=== PATIENT | male | born 1940 | race Caucasian/White ===

== ENCOUNTER 2017-04-25 08:07 | Outpatient (CLI) | payer MEDICARE, OTHER ==
[2017-04-25 13:45] LABS: BASOPHILS % (AUTO) 0.7 %; EOSINOPHILS # (AUTO) 0.3 10^3/uL (0.0-0.7); EOSINOPHILS % (AUTO) 5.3 %; HCT - HEMATOCRIT 38.5 % (42.0-52.0); LYMPHOCYTES # (AUTO) 1.6 10^3/uL (1.5-3.5); LYMPHOCYTES % (AUTO) 30.6 %; MEAN CORPUSCULAR HEMOGLOBIN 31.8 pg (27.0-31.0); MEAN CORPUSCULAR HGB CONC 33.7 g/dL (32.0-36.0); MEAN CORPUSCULAR VOLUME 94.3 fL (80.0-94.0); MEAN PLATELET VOLUME 10.3 fL (7.4-11.4); MONOCYTES # (AUTO) 0.6 10^3/uL (0.0-1.0); MONOCYTES % (AUTO) 12.1 %; NEUTROPHILS # (AUTO) 2.7 10^3/uL (1.5-6.6); NEUTROPHILS % (AUTO) 51.3 %; RED BLOOD COUNT 4.08 10^6/uL (4.70-6.10); RED CELL DISTRIBUTION WIDTH 14.7 % (12.0-15.0); UNCORRECTED WHITE BLOOD COUNT 5.2 x10^3/uL; WHITE BLOOD COUNT 5.2 x10^3/uL (4.8-10.8)
[2017-04-25 14:07] LABS: ALBUMIN/GLOBULIN RATIO 1.6 (1.0-2.2); BILIRUBIN,TOTAL 0.8 mg/dL (0.2-1.0); BUN - BLOOD UREA NITROGEN 13 mg/dL (6-20); CALCIUM 8.8 mg/dL (8.5-10.3); CARBON DIOXIDE - CO2 29 mmol/L (21-32); CHLORIDE 104 mmol/L (101-111); CHOL/HDL RATIO 3.3 (<5.0); CHOLESTEROL 160 mg/dL; CREATININE 0.9 mg/dL (0.6-1.2); GFR - MDRD 81 (>89); GLUCOSE 79 mg/dL (70-100); HDL CHOLESTEROL 49 mg/dL; LDL/HDL RATIO 1.9 (<3.6); SODIUM 137 mmol/L (135-145); TOTAL PROTEIN 6.5 g/dL (6.7-8.2); TRIGLYCERIDES 81 mg/dL; VLDL CHOLESTEROL 16 mg/dL
== END 2017-04-25 08:08 | disposition home or self-care (01) ==
LOC: LAB.WCP 08:07
PROVIDERS: ATTEND Family Medicine
DX: E78.5 Hyperlipidemia, unspecified (principal); E03.9 Hypothyroidism, unspecified; R53.83 Other fatigue; Z12.5 Encounter for screening for malignant neoplasm of prostate
CPT/HCPCS: 36415; 80053; 80061; 84443; 85025; G0103; 84153

== ENCOUNTER 2017-05-08 12:56 | Day surgery (SDC) | payer MEDICARE, OTHER ==
[2017-05-08] MEDS ORDERED: LACTATED RINGERS 1,000 ML IV ONE (13:40)
[2017-05-08] MEDS ORDERED: MIDAZOLAM 2 MG/2 ML VIAL IVP ONE (14:22)
[2017-05-08] MEDS ORDERED: fentaNYL 100 MCG/2 ML VIAL IVP ONE (14:22)
--- NOTE | 2017-05-08 15:42 | PROCEDURE REPORT ---
DATE OF PROCEDURE: PROCEDURE: Colonoscopy. ENDOSCOPIST: Gege Meneses MD. INDICATION: Return visit, history of polyps. PREMEDICATION: Fentanyl 100 mcg, Versed 5 mg IV titration. After informed consent was obtained, the patient was placed in the left lateral decubitus position. T he video colonoscope was placed in the rectum and slowly advanced to the cecum. On slow withdrawal, t he mucosa was carefully examined. The scope was removed. The patient tolerated the procedure well. Pr eparation was good. BLOOD LOSS: None. COMPLICATIONS: None. FINDINGS 1. Extensive pancolonic diverticulosis, but particularly so in the left colon. 2. Otherwise negative colonoscopy to cecum. The patient will not need followup colonoscopy due to age and absence of adenomas. JOB #: [id number] EXT JOB #:[id number]
[2017-05-08 15:48] VITALS: BP 108/56
== END 2017-05-08 12:57 | disposition home or self-care (01) ==
LOC: SDS 12:56
PROVIDERS: ATTEND Internal Medicine Gastroenterology
PROC: 0DJD8ZZ Inspection of Lower Intestinal Tract, Via Natural or Artificial Opening Endoscopic (ICD-10-PCS; principal; 2017-05-08 14:00)
DX: Z86.010 Personal history of colon polyps (principal); K57.30 Diverticulosis of large intestine without perforation or abscess without bleeding; E03.9 Hypothyroidism, unspecified; E78.00 Pure hypercholesterolemia, unspecified; I73.9 Peripheral vascular disease, unspecified
CPT/HCPCS: 45378; J7120

== ENCOUNTER 2018-04-30 08:26 | Outpatient (CLI) | payer MEDICARE, OTHER ==
[2018-04-30 12:27] LABS: BASOPHILS # (AUTO) 0.1 10^3/uL (0.0-0.1); BASOPHILS % (AUTO) 0.9 %; EOSINOPHILS # (AUTO) 0.3 10^3/uL (0.0-0.7); EOSINOPHILS % (AUTO) 4.1 %; HGB - HEMOGLOBIN 13.8 g/dL (14.0-18.0); LYMPHOCYTES % (AUTO) 30.6 %; MEAN CORPUSCULAR HGB CONC 33.4 g/dL (32.0-36.0); MEAN PLATELET VOLUME 10.6 fL (7.4-11.4); MONOCYTES # (AUTO) 0.6 10^3/uL (0.0-1.0); MONOCYTES % (AUTO) 10.1 %; NEUTROPHILS # (AUTO) 3.5 10^3/uL (1.5-6.6); NEUTROPHILS % (AUTO) 54.3 %; PLT - PLATELET COUNT 232 10^3/uL (130-450); RED BLOOD COUNT 4.31 10^6/uL (4.70-6.10); RED CELL DISTRIBUTION WIDTH 14.2 % (12.0-15.0); WHITE BLOOD COUNT 6.4 x10^3/uL (4.8-10.8)
[2018-04-30 14:12] LABS: ALBUMIN 3.9 g/dL (3.2-5.5); ALBUMIN/GLOBULIN RATIO 1.3 (1.0-2.2); ALKALINE PHOSPHATASE 59 IU/L (42-121); ALT ALANINE AMINOTRANSFERASE 12 IU/L (10-60); AST ASPARTATE AMINOTRANSFERASE 18 IU/L (10-42); BILIRUBIN,TOTAL 0.6 mg/dL (0.2-1.0); BUN - BLOOD UREA NITROGEN 8 mg/dL (6-20); CALCIUM 8.8 mg/dL (8.5-10.3); CARBON DIOXIDE - CO2 29 mmol/L (21-32); CHLORIDE 103 mmol/L (101-111); CHOL/HDL RATIO 2.7 (<5.0); CHOLESTEROL 135 mg/dL; CREATININE 0.7 mg/dL (0.6-1.2); GFR - MDRD 109 (>89); GLUCOSE 78 mg/dL (70-100); HDL CHOLESTEROL 50 mg/dL; LDL CHOLESTEROL,CALCULATED 71 mg/dL; LDL/HDL RATIO 1.4 (<3.6); SODIUM 138 mmol/L (135-145); TOTAL PROTEIN 6.8 g/dL (6.7-8.2); VLDL CHOLESTEROL 14 mg/dL
== END 2018-04-30 08:27 ==
LOC: LAB.WCP 08:26
PROVIDERS: ATTEND Family Medicine
DX: E78.5 Hyperlipidemia, unspecified (principal); E03.9 Hypothyroidism, unspecified
CPT/HCPCS: 36415; 80053; 80061; 83721; 84443; 85025

== ENCOUNTER 2019-02-11 08:20 | Outpatient (CLI) | payer MEDICARE, OTHER ==
[2019-02-11 13:00] LABS: BASOPHILS # (AUTO) 0.1 10^3/uL (0.0-0.1); BASOPHILS % (AUTO) 0.9 %; EOSINOPHILS # (AUTO) 0.2 10^3/uL (0.0-0.7); EOSINOPHILS % (AUTO) 3.6 %; HGB - HEMOGLOBIN 13.5 g/dL (14.0-18.0); LYMPHOCYTES # (AUTO) 1.7 10^3/uL (1.5-3.5); LYMPHOCYTES % (AUTO) 28.3 %; MEAN CORPUSCULAR HEMOGLOBIN 31.5 pg (27.0-31.0); MEAN CORPUSCULAR HGB CONC 33.7 g/dL (32.0-36.0); MEAN CORPUSCULAR VOLUME 93.4 fL (80.0-94.0); MEAN PLATELET VOLUME 10.2 fL (7.4-11.4); MONOCYTES # (AUTO) 0.8 10^3/uL (0.0-1.0); MONOCYTES % (AUTO) 13.2 %; NEUTROPHILS # (AUTO) 3.1 10^3/uL (1.5-6.6); PLT - PLATELET COUNT 241 10^3/uL (130-450); RED BLOOD COUNT 4.28 10^6/uL (4.70-6.10); RED CELL DISTRIBUTION WIDTH 14.8 % (12.0-15.0); WHITE BLOOD COUNT 5.8 x10^3/uL (4.8-10.8)
[2019-02-11 13:38] LABS: ALBUMIN/GLOBULIN RATIO 1.4 (1.0-2.2); ALKALINE PHOSPHATASE 58 IU/L (42-121); ALT ALANINE AMINOTRANSFERASE 11 IU/L (10-60); AST ASPARTATE AMINOTRANSFERASE 19 IU/L (10-42); BILIRUBIN,TOTAL 0.6 mg/dL (0.2-1.0); BUN - BLOOD UREA NITROGEN 9 mg/dL (6-20); CALCIUM 8.9 mg/dL (8.5-10.3); CARBON DIOXIDE - CO2 28 mmol/L (21-32); CHLORIDE 102 mmol/L (101-111); CHOL/HDL RATIO 3.2 (<5.0); CHOLESTEROL 156 mg/dL; CREATININE 0.9 mg/dL (0.6-1.2); GFR - MDRD 81 (>89); GLUCOSE 87 mg/dL (70-100); HDL CHOLESTEROL 49 mg/dL; LDL CHOLESTEROL,CALCULATED 95 mg/dL; LDL/HDL RATIO 1.9 (<3.6); SODIUM 136 mmol/L (135-145); TOTAL PROTEIN 6.8 g/dL (6.7-8.2); VLDL CHOLESTEROL 12 mg/dL
== END 2019-02-11 08:21 | disposition home or self-care (01) ==
LOC: LAB.WCP 08:20
PROVIDERS: ATTEND Family Medicine
DX: E78.5 Hyperlipidemia, unspecified (principal); E03.9 Hypothyroidism, unspecified
CPT/HCPCS: 36415; 80053; 80061; 83721; 84443; 85025

== ENCOUNTER 2019-05-22 08:00 | Outpatient (CLI) | payer MEDICARE, OTHER ==
[2019-05-22 18:41] LABS: ALBUMIN 4.2 g/dL (3.2-5.5); ALBUMIN/GLOBULIN RATIO 1.4 (1.0-2.2); BILIRUBIN,TOTAL 0.6 mg/dL (0.2-1.0); CALCIUM 8.9 mg/dL (8.5-10.3); CREATININE 0.7 mg/dL (0.6-1.2); TOTAL PROTEIN 7.3 g/dL (6.7-8.2)
== END 2019-05-22 23:59 | disposition home or self-care (01) ==
LOC: LAB.N 08:00
PROVIDERS: ATTEND Family Medicine
DX: I10 Essential (primary) hypertension (principal)
CPT/HCPCS: 36415; 80053

== ENCOUNTER 2019-06-23 08:00 | Outpatient (CLI) | payer MEDICARE, OTHER ==
[2019-06-23 19:24] LABS: MAGNESIUM 2.8 mg/dL (1.7-2.8); PHOSPHORUS 2.7 mg/dL (2.5-4.6)
== END 2019-06-23 23:59 | disposition home or self-care (01) ==
LOC: LAB.N 08:00
PROVIDERS: ATTEND Family Medicine
DX: R25.2 Cramp and spasm (principal); D64.9 Anemia, unspecified
CPT/HCPCS: 36415; 81599; 83735; 84100; 84425; 86255; 86340

== ENCOUNTER 2019-06-30 08:00 | Outpatient (CLI) | payer MEDICARE, OTHER ==
[2019-06-30 19:18] LABS: THYROID STIMULATING HORMONE 1.82 uIU/mL (0.34-5.60)
[2019-06-30 19:20] LABS: FREE T4 (FREE THYROXINE) 1.12 ng/dL (0.58-1.64)
== END 2019-06-30 23:59 | disposition home or self-care (01) ==
LOC: LAB.N 08:00
PROVIDERS: ATTEND Family Medicine
DX: E03.9 Hypothyroidism, unspecified (principal)
CPT/HCPCS: 36415; 84439; 84443; 84481; 86800

== ENCOUNTER 2019-09-25 13:53 | Outpatient (CLI) | payer MEDICARE, OTHER ==
[2019-09-25 19:46] LABS: THYROID STIMULATING HORMONE 0.95 uIU/mL (0.34-5.60)
== END 2019-09-25 23:59 | disposition home or self-care (01) ==
LOC: LAB.N 13:53
PROVIDERS: ATTEND Family Medicine
DX: E07.9 Disorder of thyroid, unspecified (principal)
CPT/HCPCS: 36415; 84439; 84443; 84481; 86800

== ENCOUNTER 2019-12-21 11:22 | Outpatient (CLI) | payer MEDICARE, OTHER | END 2019-12-21 23:59 | disposition home or self-care (01) | LOC: LAB.N 11:22 | PROVIDERS: ATTEND Family Medicine | DX: E53.8 Deficiency of other specified B group vitamins (principal) | CPT/HCPCS: 36415; 82607 ==

== ENCOUNTER 2020-03-01 14:43 | Outpatient (CLI) | payer MEDICARE, OTHER ==
--- NOTE | 2020-03-03 10:42 | Ultrasound Report ---
Reason: PERIPHERAL VASCULAR DISEASE, UNSPECIFIED Procedure Date: 03/01/2020 Accession Number: [id number] / [id number] Procedure: US - Duplex Lwr Ext Arterial Bilat CPT Code: Final Report FULL RESULT: EXAM: BILATERAL LOWER EXTREMITY ARTERIAL DOPPLER ULTRASOUND EXAM DATE: 03/01/2020 03:50 PM. CLINICAL HISTORY: Unspecified peripheral vascular disease. History of hyperlipidemia and coronary artery disease. COMPARISON: Lower extremity arterial duplex from 09/15/2012. TECHNIQUE: Real-time sonographic vascular imaging was performed by the [employer] and service director, utilizing color-flow, Doppler flow, and spectral analysis. Multiple practice representative static images were saved for review. FINDINGS: There appear to be areas of mild atherosclerotic plaque in the left popliteal artery and bilateral calf arteries. Right Leg: EMBOSSING PRESS OPERATOR: PSV 70.1 cm/sec. Biphasic waveform. PSFA: PSV 54.7 cm/sec. Biphasic waveform. MSFA: PSV 57.0 cm/sec. Biphasic waveform. DSFA: PSV 49.7 cm/sec. Triphasic waveform. PFA: PSV 43.1 cm/sec. Biphasic waveform. POP: PSV 43.8 cm/sec. Biphasic waveform. EUGENIA: PSV 58.3 cm/sec. Biphasic waveform. WAXER TENDER: PSV 21.2 cm/sec. Biphasic waveform. PER: PSV 52.6 cm/sec. Biphasic waveform. DPA: PSV 19.6 cm/sec. Biphasic waveform. Left Leg: EMBOSSING PRESS OPERATOR: PSV 80.7 cm/sec. Triphasic waveform. PSFA: PSV 62.0 cm/sec. Biphasic waveform. MSFA: PSV 60.6 cm/sec. Triphasic waveform. DSFA: PSV 55.1 cm/sec. Biphasic waveform. POP: PSV 46.6 cm/sec. Biphasic waveform. PFA: PSV 43.9 cm/sec. Biphasic waveform. EUGENIA: PSV 53.8 cm/sec. Biphasic waveform. WAXER TENDER: PSV 51.4 cm/sec. Biphasic waveform. PER: PSV 55.8 cm/sec. Biphasic waveform. DPA: PSV 53.6 cm/sec. Biphasic waveform. IMPRESSION: No Doppler evidence of significant (greater than 50%) arterial stenosis in either lower extremity. RADIA
== END 2020-03-01 14:44 | disposition home or self-care (01) ==
LOC: DI 14:43
PROVIDERS: ATTEND Podiatrist
DX: I70.203 Unspecified atherosclerosis of native arteries of extremities, bilateral legs (principal)
CPT/HCPCS: 93925

== ENCOUNTER 2020-04-29 10:50 | Outpatient (CLI) | payer MEDICARE, OTHER ==
--- NOTE | 2020-04-29 14:07 | Ultrasound Report ---
PROCEDURE: Abdomen Complete INDICATIONS: ABD DISCOMFORT TECHNIQUE: Real-time scanning was performed of the abdominal and retroperitoneal organs, with image documentatio n. COMPARISON: None. FINDINGS: Liver: Liver are visualized is normal in size and homogeneous in echotexture. The left lobe of the l iver is predominantly obscured by bowel gas. Gallbladder: Gallbladder is sonographically normal. No gallstones. No gallbladder wall thickening wit h gallbladder wall measuring 1.6 mm. No pericholecystic fluid. No sonographic Yang's sign. Biliary ducts: Intrahepatic bile ducts are non-dilated. Extrahepatic bile duct caliber measures 5.0 mm. Normal is 6-7 mm or less in diameter, or 10 mm or less post-cholecystectomy. Pancreas: Obscured by bowel gas and cannot be evaluated. Spleen: Spleen is normal in size and homogeneous in echotexture. Spleen is suboptimally visualized d ue to bowel gas. Kidneys: Kidneys are normal in size and echotexture. Right kidney measures 9.5 cm long; left kidney measures 11.4 cm long. No hydronephrosis or nephrolithiasis. No solid masses. 2.3 x 1.5 x 1.8 cm r ight renal cysts. Aorta: Visualized aorta is normal in caliber at less than 3 cm. Iliacs: Proximal common iliac arteries are normal in caliber at less than 2.5 cm. IVC: Intrahepatic inferior vena cava is patent. Miscellaneous: No free abdominal fluid. IMPRESSION: 1. Study limited by excessive bowel gas. 2. No sonographic evidence of cholelithiasis or cholecystitis. 3. Right renal cyst. Reviewed by: Lexus Ho MD, PhD on 04/29/2020 2:05 PM PDT Approved by: Lexus Ho MD, PhD on 04/29/2020 2:05 PM PDT Station ID: [id number]
== END 2020-04-29 10:51 | disposition home or self-care (01) ==
LOC: DI 10:50
PROVIDERS: ATTEND Family Medicine
DX: R10.9 Unspecified abdominal pain (principal); N28.1 Cyst of kidney, acquired
CPT/HCPCS: 76700

== ENCOUNTER 2020-10-27 13:34 | Outpatient (CLI) | payer MEDICARE, OTHER ==
[2020-10-27 18:48] LABS: BASOPHILS % (AUTO) 0.6 %; EOSINOPHILS # (AUTO) 0.2 10^3/uL (0.0-0.7); EOSINOPHILS % (AUTO) 2.4 %; HGB - HEMOGLOBIN 13.8 g/dL (14.0-18.0); LYMPHOCYTES % (AUTO) 29.2 %; MEAN CORPUSCULAR HEMOGLOBIN 32.3 pg (27.0-31.0); MEAN CORPUSCULAR HGB CONC 32.6 g/dL (32.0-36.0); MEAN CORPUSCULAR VOLUME 99.1 fL (80.0-94.0); MEAN PLATELET VOLUME 12.5 fL (7.4-11.4); MONOCYTES # (AUTO) 0.8 10^3/uL (0.0-1.0); MONOCYTES % (AUTO) 11.4 %; NEUTROPHILS # (AUTO) 3.8 10^3/uL (1.5-6.6); NEUTROPHILS % (AUTO) 56.3 %; PLT - PLATELET COUNT 241 10^3/uL (130-450); RED BLOOD COUNT 4.27 10^6/uL (4.70-6.10); RED CELL DISTRIBUTION WIDTH 14.5 % (12.0-15.0); WHITE BLOOD COUNT 6.8 x10^3/uL (4.8-10.8)
[2020-10-27 19:02] LABS: ALBUMIN 4.1 g/dL (3.2-5.5); ALBUMIN/GLOBULIN RATIO 1.4 (1.0-2.2); ALKALINE PHOSPHATASE 50 IU/L (42-121); ALT ALANINE AMINOTRANSFERASE 13 IU/L (10-60); AST ASPARTATE AMINOTRANSFERASE 20 IU/L (10-42); BILIRUBIN,TOTAL 0.7 mg/dL (0.2-1.0); BUN - BLOOD UREA NITROGEN 13 mg/dL (6-20); CALCIUM 9.3 mg/dL (8.5-10.3); CARBON DIOXIDE - CO2 29 mmol/L (21-32); CHLORIDE 101 mmol/L (101-111); CHOL/HDL RATIO 2.9 (<5.0); CHOLESTEROL 153 mg/dL; CREATININE 0.8 mg/dL (0.6-1.2); GLUCOSE 79 mg/dL (70-100); HDL CHOLESTEROL 52 mg/dL; LDL CHOLESTEROL,CALCULATED 85 mg/dL; LDL/HDL RATIO 1.6 (<3.6); MAGNESIUM 2.6 mg/dL (1.7-2.8); VLDL CHOLESTEROL 16 mg/dL
== END 2020-10-27 23:59 ==
LOC: LAB.WCP 13:34
PROVIDERS: ATTEND Nurse Practitioner
DX: I73.9 Peripheral vascular disease, unspecified (principal); E07.9 Disorder of thyroid, unspecified; I10 Essential (primary) hypertension; E53.8 Deficiency of other specified B group vitamins; E61.2 Magnesium deficiency; D64.9 Anemia, unspecified; E78.5 Hyperlipidemia, unspecified
CPT/HCPCS: 36415; 80053; 80061; 82607; 82746; 83721; 83735; 84443; 85025

== ENCOUNTER 2021-02-03 08:00 | Outpatient (CLI) | payer MEDICARE, OTHER | END 2021-02-03 23:59 | disposition home or self-care (01) | LOC: LAB.WCP 08:00 | PROVIDERS: ATTEND Internal Medicine | DX: G62.9 Polyneuropathy, unspecified (principal) | CPT/HCPCS: 36415; 81599; 84155; 84165; 86334 ==

== ENCOUNTER 2021-11-14 08:16 | Outpatient (CLI) | payer MEDICARE, OTHER ==
[2021-11-14 11:37] LABS: BASOPHILS % (AUTO) 0.4 %; EOSINOPHILS # (AUTO) 0.2 10^3/uL (0.0-0.7); EOSINOPHILS % (AUTO) 3.1 %; HCT - HEMATOCRIT 40.4 % (42.0-52.0); HGB - HEMOGLOBIN 13.2 g/dL (14.0-18.0); LYMPHOCYTES # (AUTO) 1.3 10^3/uL (1.5-3.5); LYMPHOCYTES % (AUTO) 25.7 %; MEAN CORPUSCULAR HGB CONC 32.7 g/dL (32.0-36.0); MEAN CORPUSCULAR VOLUME 98.1 fL (80.0-94.0); MEAN PLATELET VOLUME 11.8 fL (7.4-11.4); MONOCYTES # (AUTO) 0.6 10^3/uL (0.0-1.0); NEUTROPHILS % (AUTO) 58.6 %; PLT - PLATELET COUNT 257 10^3/uL (130-450); RED BLOOD COUNT 4.12 10^6/uL (4.70-6.10); RED CELL DISTRIBUTION WIDTH 14.6 % (12.0-15.0); WHITE BLOOD COUNT 5.2 x10^3/uL (4.8-10.8)
[2021-11-14 13:22] LABS: THYROID STIMULATING HORMONE 1.73 uIU/mL (0.34-5.60)
[2021-11-14 13:27] LABS: ALBUMIN/GLOBULIN RATIO 1.3 (1.0-2.2); ALKALINE PHOSPHATASE 59 IU/L (42-121); ALT ALANINE AMINOTRANSFERASE 11 IU/L (10-60); AST ASPARTATE AMINOTRANSFERASE 17 IU/L (10-42); BILIRUBIN,TOTAL 0.8 mg/dL (0.2-1.0); BUN - BLOOD UREA NITROGEN 10 mg/dL (6-20); CALCIUM 8.9 mg/dL (8.5-10.3); CARBON DIOXIDE - CO2 28 mmol/L (21-32); CHLORIDE 98 mmol/L (101-111); CHOL/HDL RATIO 2.7 (<5.0); CHOLESTEROL 148 mg/dL; CREATININE 0.9 mg/dL (0.6-1.2); GFR - MDRD 81 (>89); GLUCOSE 84 mg/dL (70-100); HDL CHOLESTEROL 54 mg/dL; LDL CHOLESTEROL,CALCULATED 81 mg/dL; LDL/HDL RATIO 1.5 (<3.6); SODIUM 135 mmol/L (135-145); TOTAL PROTEIN 7.1 g/dL (6.7-8.2); TRIGLYCERIDES 64 mg/dL; VLDL CHOLESTEROL 13 mg/dL
== END 2021-11-14 08:17 | disposition home or self-care (01) ==
LOC: LAB.N 08:16
PROVIDERS: ATTEND Internal Medicine
DX: I10 Essential (primary) hypertension (principal); E53.8 Deficiency of other specified B group vitamins; E03.9 Hypothyroidism, unspecified; D47.2 Monoclonal gammopathy
CPT/HCPCS: 36415; 80053; 80061; 81599; 82607; 83721; 84155; 84165; 84443; 85025; 86334

== ENCOUNTER 2022-02-02 07:20 | Outpatient (CLI) | payer MEDICARE, OTHER | END 2022-02-02 07:21 | disposition home or self-care (01) | LOC: LAB.N 07:20 | PROVIDERS: ATTEND Internal Medicine | DX: Z53.9 Procedure and treatment not carried out, unspecified reason (principal) ==

== ENCOUNTER 2022-02-05 13:44 | Outpatient (CLI) | payer MEDICARE, OTHER ==
[2022-02-05 17:56] LABS: BASOPHILS % (AUTO) 0.4 %; EOSINOPHILS # (AUTO) 0.2 10^3/uL (0.0-0.7); EOSINOPHILS % (AUTO) 2.7 %; HCT - HEMATOCRIT 40.9 % (42.0-52.0); HGB - HEMOGLOBIN 13.3 g/dL (14.0-18.0); LYMPHOCYTES # (AUTO) 1.3 10^3/uL (1.5-3.5); MEAN CORPUSCULAR HEMOGLOBIN 31.5 pg (27.0-31.0); MEAN CORPUSCULAR HGB CONC 32.5 g/dL (32.0-36.0); MEAN CORPUSCULAR VOLUME 96.9 fL (80.0-94.0); MEAN PLATELET VOLUME 12.6 fL (7.4-11.4); MONOCYTES # (AUTO) 0.6 10^3/uL (0.0-1.0); MONOCYTES % (AUTO) 11.5 %; NEUTROPHILS # (AUTO) 3.4 10^3/uL (1.5-6.6); PLT - PLATELET COUNT 229 10^3/uL (130-450); RED BLOOD COUNT 4.22 10^6/uL (4.70-6.10); RED CELL DISTRIBUTION WIDTH 14.7 % (12.0-15.0); WHITE BLOOD COUNT 5.5 x10^3/uL (4.8-10.8)
[2022-02-05 18:09] LABS: CALCIUM 9.3 mg/dL (8.5-10.3); CREATININE 0.8 mg/dL (0.6-1.2); POTASSIUM 4.2 mmol/L (3.5-5.0)
[2022-02-05 18:23] LABS: THYROID STIMULATING HORMONE 1.75 uIU/mL (0.34-5.60)
== END 2022-02-05 13:45 | disposition home or self-care (01) ==
LOC: LAB.N 13:44
PROVIDERS: ATTEND Internal Medicine
DX: E53.8 Deficiency of other specified B group vitamins (principal); E03.9 Hypothyroidism, unspecified; I10 Essential (primary) hypertension
CPT/HCPCS: 36415; 80048; 82607; 84443; 85025

== ENCOUNTER 2022-02-13 10:17 | Outpatient (CLI) | payer MEDICARE, OTHER ==
--- NOTE | 2022-02-13 14:38 | XRAY Report ---
PROCEDURE: Abdomen 1 View X-Ray INDICATIONS: IRRITABLE BOWEL SYNDROME W/CONSTIPATION TECHNIQUE: One view of the abdomen acquired. COMPARISON: Plain films dated 07/04/2018 FINDINGS: Surgical changes and devices: None. Bowel: There is moderate stool within the left colon. Bowel gas pattern is otherwise normal. Soft tissues: No suspicious abdominal calcifications. Visualized solid organ contours appear normal in size. Bones: No suspicious bony lesions. IMPRESSION: Left colonic stool. No evidence of small bowel obstruction. Reviewed by: Bryan Mckeon MD on 02/13/2022 2:37 PM PDT Approved by: Bryan Mckeon MD on 02/13/2022 2:37 PM PDT Station ID: [id number]
== END 2022-02-13 10:18 | disposition home or self-care (01) ==
LOC: DI 10:17
PROVIDERS: ATTEND Internal Medicine
DX: K58.1 Irritable bowel syndrome with constipation (principal)

== ENCOUNTER 2022-09-21 08:20 | Outpatient (CLI) | payer MEDICARE, OTHER ==
[2022-09-21 12:36] LABS: BASOPHILS # (AUTO) 0.1 10^3/uL (0.0-0.1); BASOPHILS % (AUTO) 0.9 %; EOSINOPHILS # (AUTO) 0.4 10^3/uL (0.0-0.7); EOSINOPHILS % (AUTO) 6.3 %; HCT - HEMATOCRIT 41.2 % (42.0-52.0); HGB - HEMOGLOBIN 13.1 g/dL (14.0-18.0); LYMPHOCYTES # (AUTO) 1.3 10^3/uL (1.5-3.5); MEAN CORPUSCULAR HEMOGLOBIN 31.4 pg (27.0-31.0); MEAN CORPUSCULAR HGB CONC 31.8 g/dL (32.0-36.0); MEAN CORPUSCULAR VOLUME 98.8 fL (80.0-94.0); MEAN PLATELET VOLUME 12.6 fL (7.4-11.4); MONOCYTES # (AUTO) 0.7 10^3/uL (0.0-1.0); MONOCYTES % (AUTO) 12.5 %; NEUTROPHILS # (AUTO) 3.3 10^3/uL (1.5-6.6); NEUTROPHILS % (AUTO) 57.1 %; PLT - PLATELET COUNT 234 10^3/uL (130-450); RED BLOOD COUNT 4.17 10^6/uL (4.70-6.10); RED CELL DISTRIBUTION WIDTH 14.8 % (12.0-15.0); WHITE BLOOD COUNT 5.7 x10^3/uL (4.8-10.8)
[2022-09-21 12:57] LABS: THYROID STIMULATING HORMONE 1.7 uIU/mL (0.34-5.60)
[2022-09-21 13:03] LABS: ALBUMIN 4.1 g/dL (3.2-5.5); ALBUMIN/GLOBULIN RATIO 1.5 (1.0-2.2); ALKALINE PHOSPHATASE 59 IU/L (42-121); ALT ALANINE AMINOTRANSFERASE 14 IU/L (10-60); AST ASPARTATE AMINOTRANSFERASE 18 IU/L (10-42); BILIRUBIN,TOTAL 0.6 mg/dL (0.2-1.0); BUN - BLOOD UREA NITROGEN 12 mg/dL (6-20); CHOLESTEROL 164 mg/dL; CREATININE 0.9 mg/dL (0.6-1.2); GFR - MDRD 80 (>89); HDL CHOLESTEROL 54 mg/dL; LDL CHOLESTEROL,CALCULATED 98 mg/dL; LDL/HDL RATIO 1.8 (<3.6); TOTAL PROTEIN 6.9 g/dL (6.7-8.2); TRIGLYCERIDES 60 mg/dL; VLDL CHOLESTEROL 12 mg/dL
[2022-09-21 13:24] LABS: CALCIUM 9.1 mg/dL (8.5-10.3); CARBON DIOXIDE - CO2 31 mmol/L (21-32); CHLORIDE 103 mmol/L (101-111); GLUCOSE 93 mg/dL (70-100); POTASSIUM 4.1 mmol/L (3.5-5.0); SODIUM 140 mmol/L (135-145)
[2022-09-24 14:08] LABS: A/G RATIO 1.4 (0.7-1.7); ALBUMIN 3.7 g/dL (2.9-4.4); ALPHA-1-GLOBULIN 0.2 g/dL (0.0-0.4); ALPHA-2-GLOBULIN 0.6 g/dL (0.4-1.0); BETA GLOBULIN 0.7 g/dL (0.7-1.3); GAMMA GLOBULIN 1.2 g/dL (0.4-1.8); GLOBULIN TOTAL 2.7 g/dL (2.2-3.9); IMMUNOGLOBULIN A 139 mg/dL (61-437); IMMUNOGLOBULIN G 1230 mg/dL (603-1613); IMMUNOGLOBULIN M 48 mg/dL (15-143); M-SPIKE 0.3 g/dL (Not Observed); PROTEIN TOTAL 6.4 g/dL (6.0-8.5)
== END 2022-09-21 08:21 | disposition home or self-care (01) ==
LOC: LAB.N 08:20
PROVIDERS: ATTEND Internal Medicine
DX: I10 Essential (primary) hypertension (principal); E78.5 Hyperlipidemia, unspecified; E53.8 Deficiency of other specified B group vitamins; G62.9 Polyneuropathy, unspecified; D47.2 Monoclonal gammopathy
CPT/HCPCS: 36415; 80053; 80061; 82607; 82784; 83721; 84155; 84165; 84443; 85025; 86334

== ENCOUNTER 2022-10-19 14:58 | Outpatient (CLI) | payer MEDICARE, OTHER ==
--- NOTE | 2022-10-19 16:40 | Ultrasound Report ---
PROCEDURE: Duplex Ext Veins Bilateral INDICATIONS: Peripheral edema TECHNIQUE: Real-time imaging, as well as color and pulse Doppler interrogation, were performed of the deep veins of both legs from the inguinal ligament to the popliteal fossa. COMPARISON: None. FINDINGS: The deep veins are normally compressible, and free of intraluminal thrombus. Color and pu lse Doppler demonstrate normal phasic intravascular flow. There is normal augmentation response to d istal compression maneuver. IMPRESSION: No lower extremity DVT in either leg. Reviewed by: Raj Trammell MD on 10/19/2022 4:39 PM PST Approved by: Raj Trammell MD on 10/19/2022 4:39 PM PST Station ID: [id number]
--- NOTE | 2022-10-19 17:42 | Ultrasound Report ---
PROCEDURE: Duplex Lwr Ext Arterial Bilat INDICATIONS: PERIPHERAL EDEMA TECHNIQUE: Color and pulse Doppler interrogation was performed of both lower extremity arterial systems, with im age documentation. COMPARISON: Arterial duplex dated 03/01/2020 FINDINGS: Right lower extremity: Common femoral artery: 54.8 cm/sec, with triphasic flow. Deep femoral artery: 31.7 cm/sec, with triphasic flow. Proximal superficial femoral artery: 61.7 cm/sec, with triphasic flow. Mid superficial femoral artery: 60.6 cm/sec, with triphasic flow. Distal superficial femoral artery: 50.3 cm/sec, with triphasic flow. Popliteal artery: 45.7 cm/sec, with triphasic flow. Posterior tibial artery: 53.2 cm/sec, with triphasic flow. Anterior tibial artery/dorsalis pedis: 31.7 cm/sec, with triphasic flow. Rosa-scale imaging description: Mild atheromatous plaque. No focal hemodynamically significant steno sis. Left lower extremity: Common femoral artery: 62.0 cm/sec, with triphasic flow. Deep femoral artery: 34.1 cm/sec, with triphasic flow. Proximal superficial femoral artery: 74.7 cm/sec, with triphasic flow. Mid superficial femoral artery: 61.0 cm/sec, with triphasic flow. Distal superficial femoral artery: 42.5 cm/sec, with triphasic flow. Popliteal artery: 45.4 cm/sec, with triphasic flow. Posterior tibial artery: 55.0 cm/sec, with triphasic flow. Anterior tibial artery/dorsalis pedis: 58.0 cm/sec, with triphasic flow. Rosa-scale imaging description: Mild atheromatous plaque. No focal hemodynamically significant steno sis. IMPRESSION: No focal hemodynamically significant stenosis of the bilateral lower extremity arteries. Reviewed by: Talia Golden MD on 10/19/2022 5:41 PM PST Approved by: Talia Golden MD on 10/19/2022 5:41 PM PST Station ID: [id number]
== END 2022-10-19 14:59 | disposition home or self-care (01) ==
LOC: DI 14:58
PROVIDERS: ATTEND Registered Nurse
DX: R60.0 Localized edema (principal)
CPT/HCPCS: 93925; 93970

== ENCOUNTER 2023-08-28 07:14 | Outpatient (CLI) | payer MEDICARE, OTHER ==
[2023-08-28 12:12] LABS: BASOPHILS % (AUTO) 0.9 %; EOSINOPHILS # (AUTO) 0.3 10^3/uL (0.0-0.7); EOSINOPHILS % (AUTO) 6.7 %; HCT - HEMATOCRIT 39.1 % (42.0-52.0); HGB - HEMOGLOBIN 12.6 g/dL (14.0-18.0); LYMPHOCYTES # (AUTO) 1.3 10^3/uL (1.5-3.5); MEAN CORPUSCULAR HEMOGLOBIN 32.5 pg (27.0-31.0); MEAN CORPUSCULAR HGB CONC 32.2 g/dL (32.0-36.0); MEAN CORPUSCULAR VOLUME 100.8 fL (80.0-94.0); MEAN PLATELET VOLUME 12.5 fL (7.4-11.4); MONOCYTES # (AUTO) 0.6 10^3/uL (0.0-1.0); NEUTROPHILS # (AUTO) 2.4 10^3/uL (1.5-6.6); NEUTROPHILS % (AUTO) 51.2 %; PLT - PLATELET COUNT 237 10^3/uL (130-450); RED BLOOD COUNT 3.88 10^6/uL (4.70-6.10); WHITE BLOOD COUNT 4.6 x10^3/uL (4.8-10.8)
[2023-08-28 12:33] LABS: ALBUMIN 4.3 g/dL (3.2-5.5); ALKALINE PHOSPHATASE 61 IU/L (42-121); ALT ALANINE AMINOTRANSFERASE 9 IU/L (10-60); AST ASPARTATE AMINOTRANSFERASE 15 IU/L (10-42); BILIRUBIN,TOTAL 0.6 mg/dL (0.2-1.0); BUN - BLOOD UREA NITROGEN 13 mg/dL (6-20); CALCIUM 9.6 mg/dL (8.5-10.3); CARBON DIOXIDE - CO2 32 mmol/L (21-32); CHLORIDE 104 mmol/L (101-111); CHOL/HDL RATIO 2.9 (<5.0); CHOLESTEROL 158 mg/dL; CREATININE 0.8 mg/dL (0.6-1.3); GFR - MDRD 92 (>89); GLUCOSE 87 mg/dL (74-104); HDL CHOLESTEROL 54 mg/dL; LDL CHOLESTEROL,CALCULATED 88 mg/dL; LDL/HDL RATIO 1.6 (<3.6); SODIUM 140 mmol/L (135-145); TOTAL PROTEIN 6.4 g/dL (6.4-8.9); TRIGLYCERIDES 81 mg/dL (48-352); VLDL CHOLESTEROL 16 mg/dL
[2023-08-28 12:43] LABS: THYROID STIMULATING HORMONE 2.51 uIU/mL (0.34-5.60)
[2023-08-30 18:07] LABS: KAPPA FREE LT CHAINS SERUM 23.6 mg/L (3.3-19.4); KAPPA/LAMBDA RATIO SERUM 1.37 (0.26-1.65); LAMBDA FREE LT CHAINS SERUM 17.2 mg/L (5.7-26.3)
[2023-09-02 15:08] LABS: A/G RATIO 1.6 (0.7-1.7); ALBUMIN 3.9 g/dL (2.9-4.4); ALPHA-1-GLOBULIN 0.1 g/dL (0.0-0.4); ALPHA-2-GLOBULIN 0.6 g/dL (0.4-1.0); BETA GLOBULIN 0.7 g/dL (0.7-1.3); GAMMA GLOBULIN 1.2 g/dL (0.4-1.8); GLOBULIN TOTAL 2.6 g/dL (2.2-3.9); IMMUNOGLOBULIN A (IGA) 133 mg/dL (61-437); IMMUNOGLOBULIN G (IGG) 1289 mg/dL (603-1613); IMMUNOGLOBULIN M (IGM) 45 mg/dL (15-143); M-SPIKE 0.3 g/dL (Not Observed); PROTEIN TOTAL 6.5 g/dL (6.0-8.5)
== END 2023-08-28 07:15 | disposition home or self-care (01) ==
LOC: LAB.N 07:14
PROVIDERS: ATTEND Internal Medicine
DX: I10 Essential (primary) hypertension (principal); E78.5 Hyperlipidemia, unspecified; E53.8 Deficiency of other specified B group vitamins; D47.2 Monoclonal gammopathy; E03.9 Hypothyroidism, unspecified
CPT/HCPCS: 36415; 80053; 80061; 82607; 82784; 83521; 83721; 84155; 84165; 84443; 85025; 86334

== ENCOUNTER 2023-11-28 08:45 | Day surgery (SDC) | payer MEDICARE, OTHER ==
[~2023-11-28 08:45] MED LIST: PHENYLEPHRINE 2.5% OPHTH 2 ML DROPS ONE
[2023-11-28] MEDS: LACTATED RINGERS 1,000 ML IV ONE (08:53)
[2023-11-28] MEDS: PROPARACAINE 0.5% OPHTH DROPS 15 ML ONE (09:13)
[2023-11-28] MEDS: KETOROLAC 0.45% OPHTH DROPS ONE (09:14)
--- NOTE | 2023-11-28 10:03 | ANESTHESIA ---
Pre-Anesthesia VS, & Labs - Diagnosis R senile combined cataract - Procedure R extraction cataract w IOL Vital Signs: Temp Pulse Resp BP Pulse Ox O2 Flow Rate 36.4 C L 68 16 122/75 96 11/28/23 08:59 11/28/23 08:59 11/28/23 08:59 11/28/23 08:59 11/28/23 08:59 Height: 6 ft Weight (kg): 68 kg Body Mass Index: 20.3 BMI Classification: Normal - NPO >8 hours Home Medications and Allergies Home Medications: Ambulatory Orders Magnesium Citrate 1 tab PO DAILY 11/27/23 Multivit-Min/Iron/Folic Acid/K [Multi-Day Plus Minerals Tablet] 1 tab PO DAILY 11/27/23 Levothyroxine Sodium [Synthroid] 100 mcg ORAL DAILY 05/07/17 Linaclotide [Linzess] 72 mcg ORAL DAILY 05/07/17 Simvastatin 10 mg ORAL DAILY 05/07/17 Magnesium Citrate 1 tab PO DAILY 11/27/23 Multivit-Min/Iron/Folic Acid/K [Multi-Day Plus Minerals Tablet] 1 tab PO DAILY 11/27/23 Allergies/Adverse Reactions: Allergies Allergy/AdvReac Type Severity Reaction Status Date / Time carbonterachloride Allergy Rash Uncoded 11/27/23 13:42 aspertane AdvReac Mild Itching Uncoded 11/27/23 13:42 Anes History & Medical History - Anesthetic History Anesthesia Complications: reports: No previous complications Family history of Anesthesia Complications: Denies Family history of Malignant Hyperthermia: Denies - Medical History Cardiovascular: reports: None, High cholesterol Pulmonary: reports: None Gastrointestinal: reports: Colon polyps, Chronic diarrhea, Chronic constipation Urinary: reports: None Musculoskeletal: reports: Chronic back pain Endocrine/Autoimmune: reports: HyPOthyroidism Skin: reports: Other - Surgical History General: reports: Colonoscopy Exam General: Alert, Oriented x3, Cooperative Dental: Partials Upper Mouth Openin Fingerbreadth Neck Mobility: Normal Mallampati classification: II Thyromental Distance: 4-6 cm Respiratory: Lungs clear, Normal breath sounds, No respiratory distress Cardiovascular: Regular rate Neurological: Normal speech Mental/Cognitive Status: Alert/Oriented X3, Normal for patient Cognitive Status: Within normal limits Plan Anesthesia Type: MAC Consent for Procedure(s) Verified and Reviewed: Yes Code Status: Attempt Resuscitation ASA classification: 2-Mild systemic disease Is this case an emergency?: No
[2023-11-28] MEDS ORDERED: MIDAZOLAM 2 MG/2 ML VIAL ONE (10:04)
[2023-11-28] MEDS ORDERED: BSS/LIDOCAINE/EPINEPHRINE 1 ML VIAL ONE (10:15)
[2023-11-28] MEDS ORDERED: BRIMONIDINE 0.2% OPHTH DROPS 5 ML ONE (10:15)
[2023-11-28] MEDS ORDERED: EPINEPHrine 1 MG/ML AMP ONE ×2 (10:15→10:30)
[2023-11-28] MEDS ORDERED: TIMOLOL 0.5% OPHTH DROPS ONE (10:15)
[2023-11-28] MEDS ORDERED: TRIAMCIN/MOXIFLOX OPHTHALMIC 0.6 ML VIAL IO ONE (10:15)
[2023-11-28] MEDS: BRIMONIDINE 0.2% OPHTH DROPS 5 ML OPTH ONE (10:17)
[2023-11-28] MEDS: EPINEPHrine 1 MG/ML AMP IR ONE (10:17)
[2023-11-28] MEDS: VANCOMYCIN OPHTH (TOPICAL) 10 MG/ML SYRINGE TOP ONE (10:18)
[2023-11-28] MEDS: TRIAMCIN/MOXIFLOX OPHTHALMIC 0.6 ML VIAL IO ONE (10:18)
[2023-11-28] MEDS: TIMOLOL 0.5% OPHTH DROPS OPTH ONE (10:18)
[2023-11-28] MEDS: PROPARACAINE 0.5% OPHTH DROPS 15 ML EACHEYE ONE (10:18)
[2023-11-28] MEDS: BSS/LIDOCAINE/EPINEPHRINE 1 ML SYRINGE IO ONE (10:18)
[2023-11-28] MEDS: LACTATED RINGERS 800 ML IV ONE (10:59)
--- NOTE | 2023-11-28 11:10 | OPERATIVE REPORT ---
Operative Report - Other Other Information/Narrative: Date of Surgery: 11/28/23 Preop Dx: Visually significant cataract right eye. This was the first cataract surgery. Postop Dx: Same Procedure: Phacoemulsification with posterior chamber intraocular lens implant right eye Surgeon: Dr. 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 Best corrected visual acuity was 20/50 with glare to 20/630 vision in the right eye. Indications for surgery were: - Overall decrease in vision - Difficulty seeing words on a computer screen - Difficulty reading - Difficulty seeing words, closed captions, or game scores on TV - Difficulty with glare or bright lights in any situation The patient was consented at length concerning the risks and benefits of cataract surgery after which the patient expressed a desire to proceed with surgery. Operative Procedure: The patient was taken into OR#3 and placed under monitored anesthesia care. A surgical time-out was conducted confirming correct patient, correct procedure, and correct surgical site. The patient was given topical anesthesia and then prepped and draped in the usual sterile fashion. The eye was entered at the 6 and 3 oclock positions. Intracameral Shugarcaine was injected into the anterior chamber followed by a dispersive viscoelastic. A continuous-tear curvilinear capsulorhexis was performed. The nucleus was hydrodissected and phacoemulsified. The cortex was evacuated using automated infusion and aspiration. A cohesive viscoelastic was injected into the capsular bag and a 23.5 diopter intraocular lens was inserted into the bag. Infusion and aspiration were used to evacuate the viscoelastic materials from the eye. The wounds were hydrated and the eye inflated to physiologic pressure using balanced salt solution. Approximately 0.25ml of a mixture of triamcinolone and moxifloxacin was injected trans-sclerally into the vitreous in the inferotemporal quadrant using a 30 gauge cannula. An additional 0.25ml of a mixture of triamcinolone and moxifloxacin was injected subconjunctivally in the superior quadrant for infection and inflammation prophylaxis. Wound integrity was checked with Weck-Alana sponges. The patient was taken from the operating room in good condition and given post-op instructions.
[2023-11-28 11:23] VITALS: BP 113/60; O2SAT 98
--- NOTE | 2023-11-28 11:24 | ANESTHESIA POST OP EVALUATION ---
Anesthesia Post Eval - Post Anesthesia Eval Vitals: Last Vital Signs Temp 36.7 C 11/28/23 11:07 Pulse 63 11/28/23 11:07 Resp 16 11/28/23 11:07 BP 113/60 11/28/23 11:07 Pulse Ox 98 11/28/23 11:07 O2 Flow Rate CV Function Including HR & BP: Stable Pain Control: Satisfactory Nausea & Vomiting: Negative Mental Status: Baseline Respiratory Status: Airway Patent Hydration Status: Satisfactory Anesthesia Complications: None
== END 2023-11-28 08:46 | disposition home or self-care (01) ==
LOC: SDS 08:45
PROVIDERS: ATTEND Ophthalmology
DX: H25.811 Combined forms of age-related cataract, right eye (principal); F41.9 Anxiety disorder, unspecified
CPT/HCPCS: 66984; A9270; J3490; J7120

== ENCOUNTER 2024-04-17 07:07 | Outpatient (CLI) | payer MEDICARE, OTHER ==
[2024-04-17 12:08] LABS: BASOPHILS % (AUTO) 0.2 %; EOSINOPHILS # (AUTO) 0.1 10^3/uL (0.0-0.7); HCT - HEMATOCRIT 37.4 % (42.0-52.0); HGB - HEMOGLOBIN 12.4 g/dL (14.0-18.0); LYMPHOCYTES # (AUTO) 1.2 10^3/uL (1.5-3.5); LYMPHOCYTES % (AUTO) 25.7 %; MEAN CORPUSCULAR HEMOGLOBIN 32.7 pg (27.0-31.0); MEAN CORPUSCULAR HGB CONC 33.2 g/dL (32.0-36.0); MEAN CORPUSCULAR VOLUME 98.7 fL (80.0-94.0); MEAN PLATELET VOLUME 12.3 fL (7.4-11.4); MONOCYTES # (AUTO) 0.6 10^3/uL (0.0-1.0); MONOCYTES % (AUTO) 12.1 %; NEUTROPHILS # (AUTO) 2.7 10^3/uL (1.5-6.6); NEUTROPHILS % (AUTO) 59.6 %; PLT - PLATELET COUNT 159 10^3/uL (130-450); RED BLOOD COUNT 3.79 10^6/uL (4.70-6.10); RED CELL DISTRIBUTION WIDTH 14.4 % (12.0-15.0); WHITE BLOOD COUNT 4.6 x10^3/uL (4.8-10.8)
[2024-04-17 12:46] LABS: THYROID STIMULATING HORMONE 1.37 uIU/mL (0.34-5.60)
[2024-04-17 12:58] LABS: ALBUMIN 4.2 g/dL (3.2-5.5); ALBUMIN/GLOBULIN RATIO 1.5 (1.0-2.2); BILIRUBIN,TOTAL 0.5 mg/dL (0.2-1.0); CALCIUM 9.6 mg/dL (8.5-10.3); CREATININE 0.8 mg/dL (0.6-1.3); POTASSIUM 4.1 mmol/L (3.5-4.5)
[2024-04-18 19:07] LABS: KAPPA FREE LT CHAINS SERUM 12.4 mg/L (3.3-19.4); KAPPA/LAMBDA RATIO SERUM 0.97 (0.26-1.65); LAMBDA FREE LT CHAINS SERUM 12.8 mg/L (5.7-26.3)
[2024-04-20 15:08] LABS: A/G RATIO 1.4 (0.7-1.7); ALBUMIN 3.7 g/dL (2.9-4.4); ALPHA-1-GLOBULIN 0.1 g/dL (0.0-0.4); ALPHA-2-GLOBULIN 0.5 g/dL (0.4-1.0); BETA GLOBULIN 0.7 g/dL (0.7-1.3); GAMMA GLOBULIN 1.4 g/dL (0.4-1.8); GLOBULIN TOTAL 2.7 g/dL (2.2-3.9); IMMUNOGLOBULIN A (IGA) 130 mg/dL (61-437); IMMUNOGLOBULIN G (IGG) 1254 mg/dL (603-1613); IMMUNOGLOBULIN M (IGM) 40 mg/dL (15-143); M-SPIKE 0.4 g/dL (Not Observed); PROTEIN TOTAL 6.4 g/dL (6.0-8.5)
== END 2024-04-17 07:08 | disposition home or self-care (01) ==
LOC: LAB.N 07:07
PROVIDERS: ATTEND Internal Medicine
DX: I10 Essential (primary) hypertension (principal); E53.8 Deficiency of other specified B group vitamins; D47.2 Monoclonal gammopathy; E03.9 Hypothyroidism, unspecified
CPT/HCPCS: 36415; 80053; 82607; 82784; 83521; 84155; 84165; 84443; 85025; 86334